=== PATIENT | female | born 1970 | race Caucasian/White ===

== ENCOUNTER 2021-11-01 12:50 | Emergency (ER) | payer OTHER, SELFPAY ==
[2021-11-01 12:50] VITALS: BP 167/77; PULSE 93; RESP 18; TEMP 36.5; O2SAT 100; BMI 36.3
--- NOTE | 2021-11-01 13:04 | EDS_ITS ---
HPI History of Present Illness Chief Complaint: Hyperglycemia Informant: patient Narrative Narrative: Patient states that for the last 3 or so days she has noticed that she has had some polyuria and polydipsia. Minimal change in vision. She has no chest pain or trouble breathing. No abdominal pain. She is felt a little bit more tired. She checked her blood sugar this morning and it was a little over 400. She called her primary physician. They recommend she come to the emergency department to get it down and then adjust her medications. She takes metformin only 500 mg once a day. No other meds for diabetes. She is on Zestoretic also. She is also on Synthroid. She has not been ill or febrile. She does have some dryness of her mouth and slight burning. But no trouble swallowing. PFSH PFSH Home Medications levothyroxine 200 mcg tablet (Synthroid) 200 mcg PO DAILY 03/10/16 [History Last Taken 03/10/16] lisinopril 20 mg-hydrochlorothiazide 25 mg tablet (Zestoretic) 1 ea PO DAILY 03/10/16 [History Last Taken 03/10/16] esomeprazole magnesium 40 mg capsule,delayed release (Nexium) 40 mg PO DAILY 07/07/16 [History Last Taken Unknown] duloxetine 20 mg capsule,delayed release cap PO 11/01/21 [History Last Taken Unknown] metformin 500 mg tablet tab 11/01/21 [History Last Taken Unknown] nystatin 100,000 unit/mL oral suspension 2 ml PO Q6H #60 mL 11/01/21 [Rx Last Taken Unknown] pregabalin 50 mg capsule cap 11/01/21 [History Last Taken Unknown] Allergy/AdvReac Type Severity Reaction Status Date / Time amoxicillin [From Augmentin] Allergy Hives Verified 11/01/21 12:51 clavulanic acid Allergy Hives Verified 11/01/21 12:51 [From Augmentin] hydrocodone [From Vicodin] AdvReac Vomiting Verified 11/01/21 12:51 Social History Smoking Status: Current every day smoker tobacco type: cigarettes ROS ROS ED Constitutional Constitutional ED: Denies chills, fever(s) or weight loss Eyes Eyes: Reports blurry vision ENT ENT ED: Reports other Details: Dry mouth and burning sensation. Occasional white spots noted. ; Denies sore throat Cardiovascular Cardiovascular: Denies chest pain or palpitations Respiratory/Chest Respiratory/Chest: Denies cough or dyspnea Gastrointestinal Gastrointestinal: Denies abdominal pain or vomiting Genitourinary Genitourinary ED: Reports urinary frequency; Denies hematuria Musculoskeletal Musculoskeletal: Denies myalgias Integumentary Denies Abrasions or rash Neurologic Neurologic: Reports other Details: No focal weakness numbness tingling or headache. She does have some overall mild lethargy. Endocrine Endocrinology: Reports polydipsia and polyuria Hematologic/Lymphatic Hematologic/Lymphatic: Denies easy bleeding or easy bruising Allergic/Immunologic Allergic/Immunologic ED: Denies urticaria EXAM Physical Exam Const Vital Signs: 11/01/21 12:50 11/01/21 12:58 Temperature 97.7 F L Temperature Source Temporal Pulse Rate 93 Respiratory Rate 18 Respiratory Effort Normal Non-Labored Respiratory Pattern Normal Blood Pressure 167/77 H Blood Pressure Mean 107 Pulse Ox 100 Oxygen Delivery Method Room Air Positive well nourished and well developed General Appearance ED: well developed HEENT Reports dry mucous membranes HEENT Narrative: Mucous membranes are somewhat red. There is little white at the corner of her lips but I do not see plaques in her mouth. But she also has dentures in. No exudate. Voice is normal. Mouth ED: Yes dry mucous membranes Mouth: dry mucous membranes Eyes PERRL and EOMs intact bilaterally Neck supple Chest Wall inspection of chest normal Resp normal respiratory effort and clear to auscultation bilaterally Cardio regular rate and regular rhythm GI normal to inspection, nondistended, normoactive bowel sounds, non-tender and non-distended; Negative for hepatosplenomegaly Inspection: Negative for abdominal distention Palpation: soft; Negative for tender or guarding Narrative: No CVAT Back/Spine no CVA tenderness Extremity normal to inspection Psych mental status grossly normal Skin no rashes or lesions noted and no wounds MDM MDM MDM Narrative Medical decision making narrative: CBC shows nonspecific mild elevation of her white count. Hemoglobin is normal. Electrolytes did show high glucose at 360. Mildly low sodium but most of this is factitious. Repeat glucose was only down to 359. She was given some more in sulin and IV fluids. Stat 226. This patient is on very low-dose of metformin. We will have her take at thousand twice daily for a day. If she controls her diet well she may be able to decrease this amount. She will follow-up with her primary physician for ongoing management. Patient does have some mild erythema of mucosa. There is a few white areas. She has had thrush and this feels similar. She is at risk for thrush with a high sugar. I will treat this. Lab Data Attestation: I reviewed the patient's lab results. Labs: Laboratory Results - last 24 hr 11/01/21 11/01/21 11/01/21 12:55 13:05 13:05 WBC 13.0 H RBC 5.21 Hgb 13.8 Hct 44.3 MCV 85.0 MCH 26.5 L MCHC 31.2 L RDW Std Deviation 44.7 H RDW Coeff of Myron 14.4 Plt Count 270 MPV 11.5 Immature Gran % (Auto) 0.500 Neut % (Auto) 65.8 Lymph % (Auto) 27.1 [place] % (Auto) 5.7 Eos % (Auto) 0.4 Baso % (Auto) 0.5 Absolute Neuts (auto) 8.6 H Absolute Lymphs (auto) 3.53 Nucleated RBC % 0 Sodium 130 L Potassium 3.7 Chloride 92 L Carbon Dioxide 31.0 Anion Gap 7 BUN 13 Creatinine 1.14 H Estim Creat Clear Calc 50.41 Est GFR (MDRD) Af Amer 64 Est GFR (MDRD) Non-Af 53 L BUN/Creatinine Ratio 11.4 Glucose 363 H Calcium 9.4 POC Glucose 369 H 11/01/21 14:12 WBC RBC Hgb Hct MCV MCH MCHC RDW Std Deviation RDW Coeff of Myron Plt Count MPV Immature Gran % (Auto) Neut % (Auto) Lymph % (Auto) [place] % (Auto) Eos % (Auto) Baso % (Auto) Absolute Neuts (auto) Absolute Lymphs (auto) Nucleated RBC % Sodium Potassium Chloride Carbon Dioxide Anion Gap BUN Creatinine Estim Creat Clear Calc Est GFR (MDRD) Af Amer Est GFR (MDRD) Non-Af BUN/Creatinine Ratio Glucose Calcium POC Glucose 359 H Discharge Plan Triage Chief Complaint: Hyperglycemia ED Provider: Javi Xie Dx/Rx/DC Orders Clinical Impression: Hyperglycemia, Oral thrush Instructions: Dina Infection: Thrush, ED Diabetic Hyperglycemia Prescriptions: New nystatin 100,000 unit/mL suspension 2 ml PO Q6H Qty: 60 0RF Rx Instructions: swish and swallow No Action lisinopril-hydrochlorothiazide [Zestoretic] 1 EACH tablet 1 ea PO DAILY levothyroxine [Synthroid] 200 MCG tablet 200 mcg PO DAILY esomeprazole magnesium [Nexium] 40 MG capsule 40 mg PO DAILY metformin 500 mg tablet Label Comments: Take 1 tablet by mouth daily (with breakfast) duloxetine 20 mg capsule,delayed release(DR/EC) PO Label Comments: Take 1 capsule by mouth daily pregabalin 50 mg capsule Label Comments: TAKE 1 CAPSULE THREE TIMES DAILY Primary Care Provider: Yvan Phillip Referrals: Yvan Phillip DO [Primary Care Provider] - 3-5 Days if not improving Disposition Disposition: Home, Self Care
[2021-11-01] MEDS: Insulin Lispro 100 UNIT/ML INSULN.PEN 6 UNIT SC (13:14)
[2021-11-01] MEDS: 0.9% Normal Saline 1,000 ML 1000 ML IV (13:14)
[2021-11-01 13:20] LABS: Bedside Glucose 369 mg/dL (74-106)
[2021-11-01 13:26] LABS: Anion Gap 7 (5-15); BUN 13 mg/dL (7-18); BUN/Creat Ratio 11.4 RATIO (10-20); Calcium,Total 9.4 mg/dL (8.5-10.1); Chloride 92 mmol/L (98-107); Creatinine, Serum 1.14 mg/dL (0.55-1.02); EST Glomerular Filtration Rate 53 mL/min (>60); Est Glom Filt Rate - Afr Amer 64 mL/min (>60); Estimated Creatinine Clearance 50.41 ml/min; Glucose 363 mg/dL (74-106); Potassium 3.7 mmol/L (3.5-5.1); Sodium Level 130 mmol/L (136-145)
[2021-11-01 14:01] LABS: Absolute Lymphocyte Count 3.53 X10^3/uL (0.83-4.51); Absolute Neutrophil Count 8.6 X10^3/uL (2.0-7.7); Basophil# 0.06 X10^3/uL; Basophil% 0.5 % (0-1); Eosinophil# 0.05 X10^3/uL; Eosinophils% 0.4 % (0-5); Hematocrit 44.3 % (37-47); Hemoglobin 13.8 g/dL (12.0-15.0); Lymphocyte # 3.53 X10^3/ul (0.83-4.51); Lymphocyte % 27.1 % (19-41); Mean Corp Hgb Conc 31.2 g/dL (32-36); Mean Corpuscular Hgb 26.5 pg (27.0-32.0); Mean Platelet Vol. 11.5 fl (6.2-12.0); Monocyte# 0.74 X10^3/uL; Monocyte% 5.7 % (0-10); NRBC Flagged by Analyzer 0 % (0-5); Neutrophil # 8.59 X10^3/uL (2.7-7.7); Neutrophil % 65.8 % (47-70); Platelet Count 270 K/mm3 (150-450); RBC Distribution Width CV 14.4 % (11.6-14.6); RBC Distribution Width SD 44.7 fl (35.1-43.9); Red Blood Count 5.21 M/mm3 (4.2-5.4)
[2021-11-01 14:30] LABS: Bedside Glucose 359 mg/dL (74-106)
[2021-11-01] MEDS: 0.9% Normal Saline 1,000 ML 999 ML IV (14:31)
[2021-11-01] MEDS: Insulin Lispro 100 UNIT/ML INSULN.PEN 10 UNIT SC (14:31)
[2021-11-01 15:54] VITALS: BP 124/69
[2021-11-01 15:55] LABS: Bedside Glucose 226 mg/dL (74-106)
== END 2021-11-01 15:54 | disposition home or self-care (01) ==
PROVIDERS: Emergency Provider Emergency Medicine; PCP Family Medicine; Visit Provider Emergency Medicine
DX: B37.0 Candidal stomatitis (principal); F17.210 Nicotine dependence, cigarettes, uncomplicated; H53.9 Unspecified visual disturbance; R73.9 Hyperglycemia, unspecified
CPT/HCPCS: 80048; 82962; 85025; 96360; 96361; 99283; J7030; A4216

== ENCOUNTER → 2021-12-25 | Outpatient (CLI) | payer OTHER, SELFPAY ==
[2021-12-25 12:08] LABS: Absolute Lymphocyte Count 2.99 X10^3/uL (0.83-4.51); Absolute Neutrophil Count 4.5 X10^3/uL (2.0-7.7); Basophil# 0.04 X10^3/uL; Basophil% 0.5 % (0-1); Eosinophil# 0.09 X10^3/uL; Eosinophils% 1.1 % (0-5); Hematocrit 40.1 % (37-47); Hemoglobin 12.5 g/dL (12.0-15.0); Lymphocyte # 2.99 X10^3/ul (0.83-4.51); Lymphocyte % 36.9 % (19-41); Mean Corp Hgb Conc 31.2 g/dL (32-36); Mean Corpuscular Hgb 26.7 pg (27.0-32.0); Mean Corpuscular Volume 85.7 fL (81-99); Mean Platelet Vol. 11.6 fl (6.2-12.0); Monocyte# 0.47 X10^3/uL; Monocyte% 5.8 % (0-10); NRBC Flagged by Analyzer 0 % (0-5); Neutrophil # 4.49 X10^3/uL (2.7-7.7); Neutrophil % 55.5 % (47-70); POSITIVE MORPHOLOGY YES; Platelet Count 229 K/mm3 (150-450); RBC Distribution Width CV 14.2 % (11.6-14.6); RBC Distribution Width SD 44.5 fl (35.1-43.9); Red Blood Count 4.68 M/mm3 (4.2-5.4); White Blood Count 8.1 K/mm3 (4.4-11.0)
[2021-12-25 12:15] LABS: Differential Indicated SCAN CRITERIA MET
[2021-12-25 12:24] LABS: ALB/GLOB Ratio 0.7 RATIO (0.9-2.4); AST(SGOT) 38 U/L (15-37); Alanine Aminotransfer ALT/SGPT 51 U/L (13-56); Albumin, Serum 3.3 g/dL (3.2-5.0); Alkaline Phosphatase 84 U/L (45-117); Anion Gap 6 (5-15); BUN 17 mg/dL (7-18); BUN/Creat Ratio 21.6 RATIO (10-20); Calcium,Total 9.6 mg/dL (8.5-10.1); Chloride 106 mmol/L (98-107); Creatinine, Serum 0.79 mg/dL (0.55-1.02); EST Glomerular Filtration Rate 82 mL/min (>60); Est Glom Filt Rate - Afr Amer 99 mL/min (>60); Globulin 4.5 g/dL (2.2-4.2); Glucose 117 mg/dL (74-106); Potassium 4.1 mmol/L (3.5-5.1); Protein, Total 7.8 g/dL (6.4-8.2); Rheumatoid Factor < 10.0 IU/mL (<15); Sodium Level 139 mmol/L (136-145)
[2021-12-25 12:34] LABS: Differential Comment SCANNED
[2021-12-25 12:35] LABS: Erythrocyte Sedimentation Rate 64 mm/hr (0-30); Reactive Lymphocyte 1+
[2021-12-25 12:52] LABS: Hepatitis B Surface Antibody Non-Reactive; Hepatitis B Surface Antigen Non-Reactive (Nonreactive); Hepatitis C Antibody Non-Reactive (Nonreactive)
[2021-12-28 15:07] LABS: QNTFERON TB Mitogen Value > 10.00 IU/mL (.); QNTFERON TB Nil Value 0 IU/mL (.); QNTFERON TB1+ Ag Value 0.01 IU/mL (.); QNTFERON TB2+ Ag Value 0 IU/mL (.)
[2021-12-28 15:29] LABS: CCP IgG Antibodies 17 units (0-19); QNTIFERON TB Positive Criteria Negative (Negative)
== END | disposition home or self-care (01) ==
LOC: MTLAB 09:52
PROVIDERS: PCP Family Medicine; Referring Provider Internal Medicine Rheumatology; Visit Provider Internal Medicine Rheumatology
DX: M06.4 Inflammatory polyarthropathy (principal); E11.9 Type 2 diabetes mellitus without complications; E03.8 Other specified hypothyroidism; K21.9 Gastro-esophageal reflux disease without esophagitis; I10 Essential (primary) hypertension
CPT/HCPCS: 36415; 80053; 85025; 85652; 86140; 86200; 86431; 86480; 86706; 86803; 87340

== ENCOUNTER → 2022-03-31 | Outpatient (CLI) | payer OTHER, SELFPAY ==
[2022-03-31 12:43] LABS: Absolute Lymphocyte Count 4.51 X10^3/uL (0.83-4.51); Absolute Neutrophil Count 6.1 X10^3/uL (2.0-7.7); Basophil# 0.04 X10^3/uL; Basophil% 0.3 % (0-1); Eosinophil# 0.09 X10^3/uL; Eosinophils% 0.8 % (0-5); Hematocrit 41.7 % (37-47); Hemoglobin 13.2 g/dL (12.0-15.0); Lymphocyte # 4.51 X10^3/ul (0.83-4.51); Lymphocyte % 39.1 % (19-41); Mean Corp Hgb Conc 31.7 g/dL (32-36); Mean Corpuscular Hgb 26.6 pg (27.0-32.0); Mean Corpuscular Volume 84.1 fL (81-99); Mean Platelet Vol. 11.8 fl (6.2-12.0); Monocyte# 0.82 X10^3/uL; Monocyte% 7.1 % (0-10); NRBC Flagged by Analyzer 0 % (0-5); Neutrophil # 6.05 X10^3/uL (2.7-7.7); Neutrophil % 52.4 % (47-70); POSITIVE MORPHOLOGY YES; Platelet Count 165 K/mm3 (150-450); RBC Distribution Width CV 15.2 % (11.6-14.6); RBC Distribution Width SD 45.8 fl (35.1-43.9); Red Blood Count 4.96 M/mm3 (4.2-5.4); White Blood Count 11.5 K/mm3 (4.4-11.0)
[2022-03-31 12:46] LABS: Differential Indicated SCAN CRITERIA MET
[2022-03-31 13:01] LABS: ALB/GLOB Ratio 1.2 RATIO (0.9-2.4); AST(SGOT) 16 U/L (15-37); Alanine Aminotransfer ALT/SGPT 28 U/L (13-56); Alkaline Phosphatase 69 U/L (45-117); Anion Gap 9 (5-15); BUN 20 mg/dL (7-18); BUN/Creat Ratio 23.3 RATIO (10-20); Calcium,Total 9.4 mg/dL (8.5-10.1); Chloride 102 mmol/L (98-107); Creatinine, Serum 0.86 mg/dL (0.55-1.02); EST Glomerular Filtration Rate 74 mL/min (>60); Est Glom Filt Rate - Afr Amer 89 mL/min (>60); Globulin 3.2 g/dL (2.2-4.2); Glucose 104 mg/dL (74-106); Potassium 3.8 mmol/L (3.5-5.1); Protein, Total 7.2 g/dL (6.4-8.2); Sodium Level 138 mmol/L (136-145)
[2022-03-31 13:23] LABS: Differential Comment SCANNED
== END | disposition home or self-care (01) ==
LOC: MTLAB 09:46
PROVIDERS: PCP Family Medicine; Referring Provider Internal Medicine Rheumatology; Visit Provider Internal Medicine Rheumatology
DX: M06.4 Inflammatory polyarthropathy (principal); E11.9 Type 2 diabetes mellitus without complications; M79.7 Fibromyalgia; G25.81 Restless legs syndrome; K76.0 Fatty (change of) liver, not elsewhere classified; E03.8 Other specified hypothyroidism; K21.9 Gastro-esophageal reflux disease without esophagitis; I10 Essential (primary) hypertension; J30.2 Other seasonal allergic rhinitis; Z79.899 Other long term (current) drug therapy
CPT/HCPCS: 36415; 80053; 85025